=== PATIENT | male | born 1995 | race Caucasian/White ===

== ENCOUNTER → 2017-01-11 | Outpatient (CLI) | payer OTHER ==
[~2017-01-11] MED LIST: ALLERGY SHOTS; FLEXERIL 1010 MG/TAB PO; FOCALIN10 MG PO; MOTRIN 800800 MG/TAB PO; NORCO 325 MG-51 TAB PO; ZOLOFT 25MG25 MG PO
== END ==
LOC: BHSO 15:06
DX: F90.0 Attention-deficit hyperactivity disorder, predominantly inattentive type (principal)

== ENCOUNTER → 2017-05-07 | Outpatient (CLI) | payer OTHER | LOC: BHSO 08:54 | DX: F90.0 Attention-deficit hyperactivity disorder, predominantly inattentive type (principal) ==

== ENCOUNTER → 2018-05-02 | Outpatient (CLI) | payer BC | LOC: BHSO 14:05 | DX: F41.1 Generalized anxiety disorder (principal) | CPT/HCPCS: G0463 ==

== ENCOUNTER → 2018-09-12 | Outpatient (CLI) | payer BC | LOC: BHSO 10:51 | DX: F90.0 Attention-deficit hyperactivity disorder, predominantly inattentive type (principal) | CPT/HCPCS: G0463 ==

== ENCOUNTER → 2019-03-07 | Outpatient (CLI) | payer BC | LOC: BHSO 14:37 | DX: F33.42 Major depressive disorder, recurrent, in full remission (principal) | CPT/HCPCS: G0463 ==

== ENCOUNTER → 2019-05-08 | Outpatient (CLI) | payer BC | LOC: BHSO 10:36 | DX: F41.1 Generalized anxiety disorder (principal) | CPT/HCPCS: G0463 ==

== ENCOUNTER → 2019-10-17 | Outpatient (CLI) | payer BC | LOC: BHSO 15:02 | DX: F41.1 Generalized anxiety disorder (principal) | CPT/HCPCS: G0463 ==

== ENCOUNTER 2024-05-29 14:14 | Inpatient (IN) | payer BC ==
[~2024-05-29] VITALS: Ht 175.3 cm; Wt 85.6 kg
[~2024-05-29 14:14] MED LIST changes: -FOCALIN10 MG PO; +RITALIN10 MG PO
[2024-05-29] MEDS ORDERED: Acetaminophen 500 MG TAB PO ONE (14:45)
[2024-05-29] MEDS ORDERED: NS 1,000 ML IV ONE (14:45)
[2024-05-29 15:18] LABS: BASO % 0.6 % (0.0-2.0); EOS # 0.2 K/mm3 (0.0-0.7); EOS % 3.3 % (0.0-4.0); GRAN # 3.9 K/mm3 (1.4-6.5); GRAN % 61.8 % (42.2-75.2); HEMATOCRIT 44.3 % (42.0-52.0); HEMOGLOBIN 15.7 g/dl (13.5-18.0); LYMPH % 16.6 % (20.0-51.0); MEAN CELL VOLUME 88 fl (80.0-100.0); MEAN CORPUSCULAR HEMOGLOBIN 31 pg (27-31); MEAN CORPUSCULAR HGB CONC 35 g/dl (33.0-37.0); MEAN PLATELET VOLUME 9.2 fl (7.4-10.4); MONO # 1.1 K/mm3 (0.1-0.6); MONO % 17.5 % (1.7-9.3); PLATELET COUNT 151 K/mm3 (130-400); RED BLOOD COUNT 5.05 M/mm3 (4.20-5.60); REDCELL DISTRIBUTION WIDTH-CV 11.9 % (11.5-14.5)
[2024-05-29 15:28] LABS: ERYTHROCYTE SEDIMENTATION RATE 9 mm/hr (0-15)
[2024-05-29 15:40] LABS: ALBUMIN 4.4 g/dL (3.5-5.0); BILIRUBIN,TOTAL 0.7 mg/dL (0.2-1.2); CALCIUM 8.9 mg/dL (8.4-10.2); CREATININE, serum 0.99 mg/dL (0.72-1.25); POTASSIUM 4.1 mEq/L (3.5-4.5); TOTAL PROTEIN 7.4 g/dl (6.2-8.1)
[2024-05-29] MEDS ORDERED: diphenhydrAMINE 50 MG/ML 1 ML VIAL IV ONE (15:45)
[2024-05-29 17:11] LABS: CSF APPEARANCE CLEAR; CSF COLOR COLORLESS
[2024-05-29 17:34] LABS: CSF MONONUCLEAR 96 % (70-100); CSF POLYMORPHONUCLEAR 4 % (0-6); CSF RBC 0 /mm3 (0-0)
[2024-05-29 17:37] LABS: CSF MONONUCLEAR 94 % (70-100); CSF POLYMORPHONUCLEAR 6 % (0-6); CSF RBC 0 /mm3 (0-0)
[2024-05-29 17:44] LABS: GLUCOSE,CSF 48 mg/dL (40-70); TOTAL PROTEIN,CSF 80 mg/dL (15-45)
[2024-05-29] MEDS ORDERED: cefTRIAXone 2 G in Water For Injection,Sterile 20 ML IV ONE (18:15)
[2024-05-29] MEDS ORDERED: VIIBRYD20 MG PO (18:31)
[2024-05-29] MEDS ORDERED: Ondansetron 4 MG/2 ML VIAL IV PRN (19:30)
[2024-05-29] MEDS ORDERED: Acetaminophen 500 MG TAB PO PRN (19:30)
[2024-05-29] MEDS ORDERED: Vancomycin 1.25 GM,Special Dose/Pharmacy Prepared 1.25 GM in NS 250 ML IV SCH (19:30)
[2024-05-29] MEDS ORDERED: ACYCLOVIR IV SCH (20:00)
[2024-05-29] MEDS ORDERED: NS IV SCH (20:00)
--- NOTE | 2024-05-29 20:39 | NUR ---
Report recieved from HARJINDER Loja. All questions answered.
[2024-05-29 20:50] VITALS: BP 106/66; PULSE 87; TEMP 98.6
--- NOTE | 2024-05-29 20:50 | NUR ---
Patient arrived to room 316 at this time with at bedside. Rates his pain at 5/10 for a headache, prn tylenol given. Assessment and med rec complete. IV in left hand flushes easliy with some compliants of pain. Patient ambulating without difficulty. Droplet precautions in place. Oriented patient and to room, call light, phone, and bed. Call light and personal items in reach. Bed in low position.
[2024-05-29 21:19] VITALS: BP_SYST 106
[2024-05-29] MEDS ORDERED: Melatonin 3 MG TAB PO PRN (22:15)
[2024-05-29 23:36] VITALS: BP 118/67; PULSE 103; TEMP 101.5
[2024-05-30] VITALS (13 sets, daily range): BP systolic 101–121; BP diastolic 61–80; PULSE 71–86; TEMP 98.3–99.3
[2024-05-30] MEDS ORDERED: cefTRIAXone 2 G in Water For Injection,Sterile 20 ML IV SCH (06:30)
[2024-05-30 06:52] LABS: BASO % 0.6 % (0.0-2.0); EOS # 0.2 K/mm3 (0.0-0.7); EOS % 2.3 % (0.0-4.0); GRAN # 3.9 K/mm3 (1.4-6.5); GRAN % 61.5 % (42.2-75.2); HEMATOCRIT 38.9 % (42.0-52.0); LYMPH # 1.2 K/mm3 (1.2-3.4); LYMPH % 18.8 % (20.0-51.0); MEAN CELL VOLUME 87 fl (80.0-100.0); MEAN CORPUSCULAR HEMOGLOBIN 31 pg (27-31); MEAN CORPUSCULAR HGB CONC 36 g/dl (33.0-37.0); MEAN PLATELET VOLUME 9.2 fl (7.4-10.4); MONO # 1.1 K/mm3 (0.1-0.6); MONO % 16.6 % (1.7-9.3); PLATELET COUNT 141 K/mm3 (130-400); RED BLOOD COUNT 4.47 M/mm3 (4.20-5.60); REDCELL DISTRIBUTION WIDTH-CV 11.5 % (11.5-14.5)
--- NOTE | 2024-05-30 07:08 | NUR ---
PATIENT ASLEEP, RESTING IN BED. CALL LGT WITHIN REACH. PATIENTS SIGNIFICANT OTHER AT BEDSIDE. PATIENT DENEIS ANY NEEDS AT THIS TIME.
[2024-05-30 07:12] LABS: CALCIUM 7.9 mg/dL (8.4-10.2); CREATININE, serum 0.77 mg/dL (0.72-1.25); POTASSIUM 3.8 mEq/L (3.5-4.5)
[2024-05-30] MEDS ORDERED: Vilazodone 10 MG TAB PO SCH (10:53)
--- NOTE | 2024-05-30 13:01 | NUR ---
Due to droplet precautions for menigitis, clinical social work therapist completed patient's assessment via telephone. funeral workers contacted patient via cell phone. Patient reports he lives in [place] with his , Cesar Valdez P# [phone]. Franklin (patient's father) is listed as another contact P# [phone]. Patient reports he does not have a PCP currently. SW explained she would provide a list of options for PCP to his nurse to give him next time she goes into his room. Pharmacy is [facility]. No issues affording medications. Patient was not certain if he had a DPOA-HC but thought maybe it was his father, clinical social work therapist explained without one it would go to his as his next of kin, patient stated that is okay with him. No DME, patient is independent with ADLS and can transport himself to and from appointments. Patient would like to return home at time of discharge. SW contacted patient's father, Franklin, to discuss if patient has a DPOA-HC. Franklin stated he did not believe he had one but is okay with helping him fill out any paperwork needed when he comes to the hospital. BJORN explained without patient having a DPOA-HC it would go to his as the next of kin. Franklin understood and has no concerns about this. Discharge plan: Home
[2024-05-30] MEDS ORDERED: oxyCODONE 5 MG TAB PO PRN (14:15)
[2024-05-30] MEDS ORDERED: Morphine 4 MG/ML VIAL IV PRN (14:15)
--- NOTE | 2024-05-30 20:25 | NUR ---
Patient resting in bed with family at bedside. Rates pain at 3/10, denies need for pain meds at this time. Denies any needs. Assessment complete. IV in left hand very tender to touch and flush, red around the site. IV in left hand discontinued and new IV started in left wrist without difficulty. Call light and pesonal items in reach. Bed in low position.
--- NOTE | 2024-05-30 21:33 | NUR ---
Hospitalist JOSE MIGUEL Khan called for patient request for nicotine patch. Recieved new orders, see MAR.
[2024-05-30] MEDS ORDERED: Nicotine 14 MG DAILY PATCH TD SCH (21:45)
[2024-05-31] VITALS (15 sets, daily range): BP systolic 106–131; BP diastolic 66–78; PULSE 62–77; TEMP 97.6–98.7
[2024-05-31 03:35] LABS: BASO % 0.5 % (0.0-2.0); EOS # 0.3 K/mm3 (0.0-0.7); EOS % 4.2 % (0.0-4.0); GRAN # 3.1 K/mm3 (1.4-6.5); GRAN % 51.8 % (42.2-75.2); HEMATOCRIT 38.7 % (42.0-52.0); HEMOGLOBIN 13.9 g/dl (13.5-18.0); LYMPH # 1.9 K/mm3 (1.2-3.4); MEAN CELL VOLUME 86 fl (80.0-100.0); MEAN CORPUSCULAR HEMOGLOBIN 31 pg (27-31); MEAN CORPUSCULAR HGB CONC 36 g/dl (33.0-37.0); MONO # 0.7 K/mm3 (0.1-0.6); MONO % 11.2 % (1.7-9.3); PLATELET COUNT 155 K/mm3 (130-400); RED BLOOD COUNT 4.52 M/mm3 (4.20-5.60); REDCELL DISTRIBUTION WIDTH-CV 11.6 % (11.5-14.5)
[2024-05-31 03:46] LABS: CALCIUM 8.3 mg/dL (8.4-10.2); CREATININE, serum 0.82 mg/dL (0.72-1.25)
--- NOTE | 2024-05-31 07:05 | NUR ---
PT RESTING IN BED. PT IS ON RA. PT IS NOT ON TELE. PT IS AXOX4. PT HAS CALL LIGHT AND INSTRUCTED TO CALL [facility] ALL NEEDS.
--- NOTE | 2024-05-31 18:54 | NUR ---
PATIENT SITTING UP IN BED WATCHING VIDEO ON COMPUTER WITH TV ON WITH NO FAMILY PRESENT WITH NO ACUTE DISTRESS NOTED. PATIENT ON ROOM AIR. INT TO LEFT WRIST INTACT WITH NO COMPLICATIONS NOTED. BEDSIDE SHIFT REPORT COMPLETED WITH ESTEVAN AT THIS TIME. PATIENT DENIES ANY NEEDS. BED IN LOW POSITION WITH WHEELS LOCKED WITH RAILS UP X2 AND CALL LIGHT WITHIN REACH.
--- NOTE | 2024-05-31 21:15 | NUR ---
PATIENT SITTING UP IN BED WITH TV ON AND LAPTOP IN BED WITH NO FAMILY PRESENT WITH NO ACUTE DISTRESS NOTED. PATIENT ON ROOM AIR. INT TO LEFT WRIST INTACT WITH NO COMPLICATIONS NOTED. ASSESSMENT AND MEDICATION ADMINISTRATION COMPLETED AT THIS TIME. PATIENT TOLERATED WELL. ALL NEEDS MET. BED IN LOW POSITION WITH WHEELS LOCKED WITH RAILS UP X2 AND CALL LIGHT WITHIN REACH.
[2024-06-01 00:10] VITALS: BP_SYST 108
[2024-06-01 03:40] VITALS: BP 116/81; PULSE 76; TEMP 98.5
[2024-06-01 04:00] VITALS: BP_SYST 116
[2024-06-01 06:00] LABS: HEMATOCRIT 39.9 % (42.0-52.0); HEMOGLOBIN 14.5 g/dl (13.5-18.0); MEAN CELL VOLUME 86 fl (80.0-100.0); MEAN CORPUSCULAR HEMOGLOBIN 31 pg (27-31); MEAN CORPUSCULAR HGB CONC 36 g/dl (33.0-37.0); MEAN PLATELET VOLUME 9.1 fl (7.4-10.4); PLATELET COUNT 165 K/mm3 (130-400); RED BLOOD COUNT 4.62 M/mm3 (4.20-5.60); REDCELL DISTRIBUTION WIDTH-CV 11.7 % (11.5-14.5)
[2024-06-01 06:19] LABS: CALCIUM 8.6 mg/dL (8.4-10.2); CREATININE, serum 0.78 mg/dL (0.72-1.25); POTASSIUM 4.3 mEq/L (3.5-4.5)
--- NOTE | 2024-06-01 06:40 | NUR ---
PT RESTING IN BED. PT IS ON RA. PT IS NOT ON TELE. PT IS AXOX4. PT HAS CALL LIGHT AND INSTRUCTED TO CALL WITH ALL NEEDS.
[2024-06-01 07:13] LABS: BAND 2 % (0-10); EOSINOPHIL 1 % (0-4); LYMPHOCYTE 38 % (20.0-51.0); NEUTROPHILS 56 % (42.0-75.2); PLATELET ESTIMATE NORMAL (NORMAL)
[2024-06-01 08:00] VITALS: BP 102/65; PULSE 68; TEMP 98.4
[2024-06-01 09:00] VITALS: BP_SYST 102
--- NOTE | 2024-06-01 09:32 | NUR ---
0815-THIS RN WAS NOTIFIED BY LAB THAT LP SAMPLE THAT WAS SENT OUT FOR VIRAL TESTING "LEAKED IN ROUTE" AND THEY ARE NOT ABLE TO RUN ANY TESTS. 0915- NOTIFIED OF ABOVE.
--- NOTE | 2024-06-01 09:34 | NUR ---
0930-LAB CALLED REGARDING NEW LAB ORDER. STATES THEY WILL TRY TO ADD ON TO AM LABS, BUT IF NOT ABLE WILL COME DRAW.
[2024-06-01] MEDS ORDERED: DOXYCYCLINE 10100 MG PO (09:35)
--- NOTE | 2024-06-01 10:25 | NUR ---
IV REMOVED. DISCHARGE INSTRUCTIONS DISCUSSED WITH PT AND DAD. DISCUSSED RETURN TO WORK. ALL QUESTIONS ANSWERED. PT WHEELED OUT FOR DISCHARGE BY [facility].
== END 2024-06-01 10:25 | disposition home or self-care (01) | DRG 98 ==
LOC: COL.ER 14:14 → MEDICAL 18:23
PROVIDERS: Physician Assistant; ADMIT Internal Medicine
PROC: 009U3ZX Drainage of Spinal Canal, Percutaneous Approach, Diagnostic (ICD-10-PCS; principal; 2024-05-29)
DX: G03.0 Nonpyogenic meningitis (principal); L03.312 Cellulitis of back [any part except buttock and flank]; Z20.822 Contact with and (suspected) exposure to COVID-19; Z87.891 Personal history of nicotine dependence; Z87.01 Personal history of pneumonia (recurrent); Z79.899 Other long term (current) drug therapy
CPT/HCPCS: J0133; J0696; J1200; J2765; J3370; J7030; J7050; Q3014